=== PATIENT | female | born 1975 | race Caucasian/White ===

== ENCOUNTER → 2017-01-10 | Outpatient (CLI) | payer OTHER ==
[~2017-01-10] MED LIST: BETA0.053 TOP; LEVOIUD VAGRING
[2017-01-10 10:10] LABS: PREG INTERNAL NEGATIVE QC NEG CLEAR BACKGROUND; PREG INTERNAL POSITIVE QC POS CONTROL LINE
[2017-01-15 07:06] LABS: CHLAMYDIA TRACH RNA*** NOT DETECTED (NOT DETECTED); GC (NEIS GONORRHOEAE)RNA** NOT DETECTED (NOT DETECTED)
== END | disposition home or self-care (01) ==
LOC: C.LAB 09:41
PROVIDERS: ATTEND Physician Assistant
DX: Z30.9 Encounter for contraceptive management, unspecified (principal)

== ENCOUNTER → 2017-01-24 | Outpatient (CLI) | payer OTHER ==
--- NOTE | 2017-01-24 11:39 | DIAGNOSTIC IMAGING REPORT ---
CERVICAL SPINE 5 VIEWS CLINICAL HISTORY: Cervicalgia. FINDINGS: AP, lateral, bilateral oblique, and odontoid views of the cervical spine are obtained. No prior studies are available for comparison at the time of dictation. The skeletal structures are well mineralized. There is no radiographic evidence of fracture or subluxation. The odontoid process and lateral masses appear intact on the open mouth view. The spinolaminar line is preserved. Vertebral body height and alignment are maintained. The spinous processes appear intact. The intervertebral disc spaces are normal. There is no evidence of neuroforaminal stenosis on the oblique views. The prevertebral soft tissues are within normal limits. Visualized apical lung parenchyma appears clear. IMPRESSION: Unremarkable radiographic assessment of the cervical spine. Electronically signed by: Owen Angeles M.D. 01/24/2017 11:38 AM Dictated Date/Time: 01/24/2017 11:36 AM
== END | disposition home or self-care (01) ==
LOC: C.RAD 10:54
PROVIDERS: ATTEND Physician Assistant
DX: M54.2 Cervicalgia (principal)

== ENCOUNTER → 2017-06-15 | Outpatient (CLI) | payer OTHER ==
[~2017-06-15] MED LIST changes: +LEVO1IUD2 VAGRING; -LEVOIUD VAGRING
[2017-06-15 14:11] LABS: ALBUMIN 4.2 gm/dl (3.4-5.0); ALT/SGPT 14 U/L (12-78); AST/SGOT 11 U/L (15-37); BLOOD UREA NITROGEN 18 mg/dl (7-18); CALCIUM 8.8 mg/dl (8.5-10.1); CARBON DIOXIDE 30 mmol/L (21-32); CHOLESTEROL 160 mg/dl (0-200); CREATININE 0.96 mg/dl (0.60-1.20); GLUCOSE 85 mg/dl (70-99); POTASSIUM 4.1 mmol/L (3.5-5.1); SODIUM 141 mmol/L (136-145)
[2017-06-15 14:14] LABS: ALKALINE PHOSPHATASE 44 U/L (45-117); LDL CHOLESTEROL CALCULATED 87 mg/dl; TOTAL PROTEIN 7.6 gm/dl (6.4-8.2)
== END | disposition home or self-care (01) ==
LOC: C.LABPBG 08:07
PROVIDERS: ATTEND Family Medicine
DX: Z00.00 Encounter for general adult medical examination without abnormal findings (principal)